=== PATIENT | female | born 2000 | race Hispanic/Latino ===

== ENCOUNTER 2020-09-15 11:49 | Day surgery (SDC) | payer OTHER ==
[2020-09-15 12:48] VITALS: BP 106/56; TEMP 98.4; BMI 33.2
[2020-09-15] MEDS ORDERED: hydrALAZINE 20 MG/ML VIAL SLOW IVP PRN (12:48)
--- NOTE | 2020-09-15 13:29 | PDOC.FPROB ---
FMR OB H&P: HPI - History of Present Illness Chief Complaint: non reactive NST History of Present Illness: Pt is a 20 yo @ 38.6 wks by 10.4wk sono was sent over from [facility] due to non-reactive NST. She has been getting routine NSTs in clinic due to decreased growth, which has resolved. Most recent US on 08/30/20 showed [place] of 58%. She states she has been able to feel movements. Denies contractions, LOF, vaginal bleeding/discharge/pain. Has scheduled eIOL on 09/20/20. Primary Care Physician: [facility]- Dr Bauer FMR OB H&P: Current - Care : 3 Para: 1011 Gestational age: 38.6 Due date: 09/23/20 Dating Criteria: 10.4wk sono Course/Complications: hx of BV in 1T, anemia - OB Labs Blood type: A RH: positive Antibody Screen: negative HIV: negative RPR: negative HepBsAg: negative Gonorrhea: negative Chlamydia: negative 1 hour gtt: 2hr GTT 76/83/111 GBS: negative - Additional Ultrasound Additional: 08/30 [place] 58% FMR OB H&P: History - Past Medical History PMH: childhood asthma, anemia - OB History OB History: , PPH requiring blood transfusion after term 3 years ago - Surgical History Sx History: umbilical hernia repair - Social History Social History: no T/A/D - Family History Family History: Grandfather- heart problems FMR OB H&P: Medications - Current Home Medications: Medication Instructions Recorded Confirmed Type Vit 10/Iron/Folic/Dha 1 each PO DAILY 08/26/16 09/15/20 History [Vitafol-OB+DHA Combo Pack] Allergies/Adverse Reactions: Allergies Allergy/AdvReac Type Severity Reaction Status Date / Time No Known Allergies Allergy Verified 09/15/20 12:41 FMR OB H&P: ROS - Review of Systems General: denies: fever/chills, weight/appetite/sleep changes Eyes: denies: vision changes ENT: denies: nasal congestion Cardiovascular: denies: chest pain, edema Respiratory: denies: cough, congestion, shortness of breath Gastrointestinal: denies: abdominal pain, nausea, vomiting Genitourinary (Female): denies: dysuria, vaginal bleeding, contractions Musculoskeletal: denies: pain Neurologic: denies: headache Integumentary: denies: rash Endocrine: denies: polyuria FMR OB H&P: Vital Signs - Maternal Vital signs: Vital Signs - First Documented Temp Pulse Resp BP 98.4 F 90 18 106/56 L 09/15/20 12:40 09/15/20 12:40 09/15/20 12:40 09/15/20 12:40 - Heart Tones Baseline: 135 Variability: moderate Acceleration: present Deceleration: absent Category: category 1 [place] contractions every: none FMR OB H&P: Physical Exam - Physical Exam General: NAD, awake, alert and oriented HEENT: normocephalic and atraumatic, no scleral icterus, grossly normal vision, grossly normal hearing Neck: supple, FROM Heart: RRR, normal S1/S2 General: CTAB, no wheezing Abdomen: soft, gravid, non-tender Musculoskeletal: pulses present, no atrophy Neurological: no focal deficit Skin: no rash, capillary refill <2 seconds, no jaundice Lymphatic: no unusual bruising or bleeding Psychiatric: intact recent and remote memory, good judgement and insight, normal mood and affect FMR OB H&P: A/P Discussion: Date/Time: 09/15/20 1326 #sIUP in 3T -non-reactive NST in clinic -VSS, asymptomatic, +FM -NST: reassuring and reactive -BPP: 05/07, LAURA 12, vertex, anterior placenta -continue routine outpatient f/u, eIOL scheduled for 09/20/20 #hx of PPH -aware #childhood asthma -aware This H&P was discussed with Dr. Benjamin and Dr. Gamez who agree with the above documentation and plan.
--- NOTE | 2020-09-15 14:31 | ULT ---
ULTRASOUND BIOPHYSICAL PROFILE: 09/15/20 HISTORY: distress. FINDINGS: A single live intrauterine gestation is seen with a heart rate of 135 beats per minute. Placent a is anterior without placenta previa. LAURA measures 12.1 cm. BIOPHYSICAL PROFILE: tone: 2 breathin movement: 2 Amniotic fluid: 2 IMPRESSION: Ultrasound biophysical profile score is 8 out of 8. POS: AH
[2020-09-16] MEDS ORDERED: FLU VACC QS2020-21(6MOS UP)/PF 60 MCG/0.5 ML SYRINGE IM ONE (13:00)
== END 2020-09-15 13:58 | disposition home or self-care (01) ==
LOC: L&D/OP 11:49
DX: Z01.89 Encounter for other specified special examinations (principal); O99.013 Anemia complicating pregnancy, third trimester; D64.9 Anemia, unspecified; O99.513 Diseases of the respiratory system complicating pregnancy, third trimester; J45.909 Unspecified asthma, uncomplicated; Z3A.38 38 weeks gestation of pregnancy
CPT/HCPCS: 59025; 76819; 99282

== ENCOUNTER 2020-09-16 09:49 | Outpatient (CLI) | payer OTHER ==
[2020-09-16 21:36] LABS: SARS-CoV-2 MS2 Positive; SARS-CoV-2 N Gene Negative; SARS-CoV-2 S Gene Negative; SARS-CoV-2 by NAA Not Detected (NotDetected); SARS-CoV-2 orf1ab Negative
== END 2020-09-16 09:50 | disposition home or self-care (01) ==
LOC: LABBT 09:49
PROVIDERS: ATTEND Emergency Medicine
DX: Z01.812 Encounter for preprocedural laboratory examination (principal); Z20.828 Contact with and (suspected) exposure to other viral communicable diseases
CPT/HCPCS: 87635; U0003

== ENCOUNTER 2020-09-20 19:30 | Inpatient (IN) | payer OTHER, SELFPAY ==
[~2020-09-20 19:30] MED LIST: Bupivacaine HCl 0.25%/Epi 0.0005/PF 10 ML VIAL FS ONE; Sodium Chloride 0.9% (PF) 10 ML VIAL ONE
[2020-09-20] MEDS ORDERED: Promethazine HCl 25 MG/ML VIAL IM PRN (20:13)
[2020-09-20] MEDS ORDERED: Ibuprofen 800 MG TAB PO PRN (20:13)
[2020-09-20] MEDS ORDERED: hydrALAZINE 20 MG/ML VIAL SLOW IVP PRN (20:13)
[2020-09-20] MEDS ORDERED: Butorphanol Tartrate 1 MG/ML VIAL SLOW IVP PRN (20:13)
[2020-09-20] MEDS ORDERED: Carboprost 250 MCG/ML AMP IM PRN (20:13)
[2020-09-20] MEDS ORDERED: Methylergonovine 0.2 MG/ML VIAL IM PRN (20:13)
[2020-09-20] MEDS ORDERED: Acetaminophen 500 MG TAB PO PRN (20:13)
[2020-09-20] MEDS ORDERED: Lidocaine 1% (PF) 30 ML VIAL SC PRN (20:13)
[2020-09-20] MEDS ORDERED: Ondansetron PF 4 MG/2 ML Vial IVP PRN (20:13)
[2020-09-20] MEDS ORDERED: Docusate 100 MG CAP PO PRN (20:13)
[2020-09-20] MEDS ORDERED: NS w/ Oxytocin 30 units 500 ML IV PRN (20:13)
[2020-09-20] MEDS ORDERED: Misoprostol 200 MCG TAB PR PRN (20:13)
--- NOTE | 2020-09-20 20:18 | PDOC.FPROB ---
FMR OB H&P: HPI - History of Present Illness Chief Complaint: eIOL History of Present Illness: Pt is a 20 yo at 39.4 wga by 10.4 wk sono consistent with LMP who presents for eIOL. Patient states she is feeling well. Endorses good movement. Denies ctx/LOF/VB/VD. Primary Care Physician: MIRIAM Bauer FMR OB H&P: Current - Care : 3 Para: 1011 Gestational age: 39.4 Due date: 09/23/2020 Dating Criteria: 10.4 wk sono - OB Labs Blood type: A RH: positive Antibody Screen: negative HIV: negative RPR: negative HepBsAg: negative Rubella: immune Gonorrhea: negative Chlamydia: negative FMR OB H&P: History - Past Medical History PMH: asthma (has not used inhaler since 10 yo), history of anemia - OB History OB History: SAB at 8 weeks with D&C in 2015 Previous delivery was a VAVD with a 2nd degree lac. She required a transfusion due to uterine atony causing PPH - [employer]IST History [employer]IST History: BV in LMP 12/18/2019 Menarche 7 - Surgical History Sx History: appendectomy - Social History Social History: denies - Family History Family History: denies FMR OB H&P: Medications - Current Home Medications: Medication Instructions Recorded Confirmed Type Vit 10/Iron/Folic/Dha 1 each PO DAILY 08/26/16 09/20/20 History [Vitafol-OB+DHA Combo Pack] Allergies/Adverse Reactions: Allergies Allergy/AdvReac Type Severity Reaction Status Date / Time No Known Allergies Allergy Verified 09/20/20 20:39 FMR OB H&P: ROS - Review of Systems General: denies: fever/chills, weight/appetite/sleep changes Eyes: denies: vision changes, double vision ENT: denies: nasal congestion Cardiovascular: denies: chest pain, palpitation, edema Respiratory: denies: cough, congestion, shortness of breath Gastrointestinal: denies: abdominal pain, nausea, vomiting, diarrhea Genitourinary (Female): denies: hematuria, vaginal discharge, vaginal pain, vaginal bleeding, contractions, vaginal pressure Neurologic: denies: numbness, syncope, headache Integumentary: denies: itching, rash FMR OB H&P: Vital Signs - Heart Tones Baseline: 140 Variability: moderate Acceleration: present Deceleration: absent Category: category 1 [place] contractions every: irritability FMR OB H&P: Physical Exam - Physical Exam General: NAD, awake, alert and oriented HEENT: normocephalic and atraumatic, PERRLA, EOMI, conjunctiva clear, grossly normal hearing Heart: RRR, normal S1/S2, no murmurs/rubs/gallops, pulses present, no edema General: CTAB, no respiratory distress, no wheezing Abdomen: soft, gravid, non-tender Neurological: cranial nerves II through XII intact, no clonus, no focal deficit Skin: good tugor, capillary refill <2 seconds Lymphatic: no unusual bruising or bleeding Psychiatric: intact recent and remote memory, good judgement and insight - Pelvic Exam Vulva: normal hair distribution, appropriate earl stage SVE: closed/thick/high Holt score: 2 Membranes: intact Presentation: cephalic FMR OB H&P: A/P Disposition: Pt is a 20 yo at 39.4 wga by 10.4 wk sono consistent with LMP who presents for eIOL. #eIOL -Holt score of 2 on admission with cervical check closed thick and high -will start with Cytotec and recheck in 3 hours -will start on Pitocin once cervix is favorable -continuous monitoring -will confirm presentation with bedside sono #history of PPH -aware -medications ordered and will be available at delivery Anticipate Discussion: Date/Time: 09/20/202017 This H&P was discussed with Dr. Mera and Dr. Jacob who agree with the above documentation and plan. Addendum - Attending - Attending Attestation Date/Time: 09/21/202007 I personally evaluated the patient and discussed the management with Dr. Alexander. I agree with the History, Examination, Assessment and Plan documented above with any addition or exceptions noted below.
[2020-09-20 20:55] VITALS: BMI 34.0
[2020-09-20] MEDS: Lactated Ringer's 1,000 ML IV SCH (20:58)
[2020-09-20 21:17] LABS: Hemoglobin 11.8 g/dL (12.0-16.0); Mean Corpuscular HGB CONC 33.2 g/dL (32.0-36.0); Mean Corpuscular Hemoglobin 27.6 pg (27.0-31.0); Mean Corpuscular Volume 83.1 fL (78.0-98.0); Mean Platelet Volume 10.4 fL (7.4-10.4); Platelet Count 156 thou/uL (130-400); RBC Distribution Width 15.2 % (11.5-14.5); Red Blood Cell (RBC) Count 4.28 mill/uL (4.20-5.40); White Blood Cell (WBC) Count 8.6 thou/uL (4.8-10.8)
[2020-09-20] MEDS: Misoprostol 100 MCG TAB VAG SCH (21:37)
[2020-09-20 21:56] LABS: Syphilis Antibody Nonreactive (Nonreactive); Syphilis Antibody Index 0.04 S/CO (<1.00 Non-Reactive)
--- NOTE | 2020-09-21 00:53 | PDOC.LDPN ---
Labor & Delivery Progress Note - Subjective Subjective: comfortable - Objective Vital signs reviewed and normal: yes General: NAD, resting Uterine fundus: non tender Dilation: 3 Effacement: 50% Station: -2 FHT: category 1, variability present [place] contractions every: q1-2 minutes Plan: continue plan of care -: Will check on patient in 1 hour as patient is matheus every 1-2 minutes, although she is not feeling them. Holt score of 6. Will start pit in 1 hour as long as contractions have spaced out. Anticipate Plan discussed with Dr Ghosh who agrees with above documentation and plan Addendum - Attending - Attending Attestation Date/Time: 09/21/20 8972 I personally evaluated the patient and discussed the management with Dr. Alexander. I agree with the History, Examination, Assessment and Plan documented above with any addition or exceptions noted below.
[2020-09-21] MEDS: Misoprostol 100 MCG TAB VAG SCH ×4 (02:01→23:34)
[2020-09-21 02:13] LABS: HBSAg Index 0.16 S/CO (0-0.99); Hep B Surf Ag Non-Reactive S/CO (NonReactive)
[2020-09-21] MEDS ORDERED: NS w/ Oxytocin 30 units 500 ML IVPB SCH ×2 (03:00)
--- NOTE | 2020-09-21 03:20 | PDOC.LDPN ---
Labor & Delivery Progress Note - Subjective Subjective: comfortable - Objective Vital signs reviewed and normal: yes General: NAD Dilation: 4 Effacement: 50% Station: -2 FHT: category 1, variability present [place] contractions every: variable 3-8 min Plan: continue plan of care, pitocin for augmentation -: Cat 1 strip Patient not feeling contractions Patient desires epidural Will start Pitocin and recheck in 2 hours Continuous monitoring Anticipate Plan discussed with Dr Ghosh who agrees with above documentation and plan
[2020-09-21] MEDS ORDERED: Fentanyl 100 MCG/2 ML VIAL ONE (03:44)
[2020-09-21] MEDS ORDERED: Lactated Ringer's 500 ML IV PRN (04:07)
[2020-09-21] MEDS ORDERED: Naloxone HCl 0.4 mg/ml Vial IVP PRN ×2 (04:07)
[2020-09-21] MEDS ORDERED: ePHEDrine 50 MG/ML VIAL SLOW IVP PRN (04:07)
[2020-09-21] MEDS ORDERED: Ondansetron PF 4 MG/2 ML Vial IVP PRN (04:07)
[2020-09-21] MEDS ORDERED: Promethazine HCl 25 MG/ML VIAL IM PRN (04:07)
[2020-09-21] MEDS ORDERED: diphenhydrAMINE 50 MG/ML VIAL IVP PRN (04:07)
[2020-09-21] MEDS ORDERED: Acetaminophen 325 MG TAB PO PRN (04:07)
[2020-09-21] MEDS ORDERED: Communication Order-Pharmacy FS SCH (04:15)
[2020-09-21] MEDS ORDERED: Fentanyl 4 mcg/Bupivacaine 0.1% Cassette 100 ML EPIDURAL SCH (04:15)
[2020-09-21] MEDS: Fentanyl 4 mcg/Bup 0.1% Cadd 100 ML in Premix Bag 1 BAG EPIDURAL SCH ×2 (04:24→11:43)
[2020-09-21] MEDS: Lactated Ringer's 1,000 ML IV SCH ×2 (05:09→11:48)
--- NOTE | 2020-09-21 07:42 | PDOC.LDPN ---
Labor & Delivery Progress Note - Subjective Subjective: comfortable - Objective Vital signs reviewed and normal: yes General: NAD Uterine fundus: non tender Dilation: 5 Effacement: 50% Station: -1 FHT: category 1, variability present [place] contractions every: 2 minutes AROM: bloody fluid (minimal fluid) Plan: continue plan of care, pitocin for augmentation -: AROM performed with minimal fluid and blood noted Cat 1 strip with contractions q 2 minutes Patient has epidural and is comfortable Continue Pit Making adequate change Recheck cervix in 3 hours Anticipate Plan discussed with Dr Ghosh who agrees with above documentation and plan
--- NOTE | 2020-09-21 09:55 | PDOC.LDPN ---
Labor & Delivery Progress Note - Subjective Subjective: comfortable - Objective Vital signs reviewed and normal: yes General: NAD SVE: /-2 FHT: category 1, variability present [place] contractions every: 5min -: Pt is a 20 yo at 39.4 wga by 10.4 wk sono consistent with LMP who presents for eIOL. #eIOL - AROM @ 0615 - SVE @ 0830 /-2, on pit @ 8 - FHT: Cat 1, baseline 130/mod [place]/+accel - continuous monitoring and routine SVE - has epidural, pain controlled #history of PPH -aware -medications ordered and will be available at delivery
--- NOTE | 2020-09-21 11:09 | PDOC.LDPN ---
Labor & Delivery Progress Note - Subjective Subjective: comfortable, no concerns - Objective Vital signs reviewed and normal: yes General: NAD, resting, breathing through contractions Uterine fundus: non tender SVE: /-2 by Meghan Dilation: 6 Effacement: 90% Station: -2 FHT: category 1, variability present [place] contractions every: 3 min AROM: clear fluid (using amnio-hook) Plan: continue plan of care, pitocin for augmentation -: Pt is a 20 yo at 39.4 wga by 10.4 wk sono consistent with LMP who presents for eIOL. #eIOL - AROM @ 0615, AROM attempted again at 1100 check with return of large amount clear fluid - SVE @ 0830 //-2, on pit @ 8 -SVE @ 1100 6//-2, on pit @ 6 - FHT: Cat 1, baseline 140/mod [place]/+accel - continuous monitoring and routine SVE - has epidural, pain controlled #history of PPH -aware -medications ordered and will be available at delivery Dispo: Stable, admitted to inpatient on L&D in labor. Next check in 2 hours, sooner if indicated.
[2020-09-21] MEDS ORDERED: Tranexamic Acid 1,000 MG/10 ML VIAL ONE (13:05)
--- NOTE | 2020-09-21 14:01 | PDOC.LDPN ---
Labor & Delivery Progress Note - Subjective Subjective: comfortable, no concerns - Objective Vital signs reviewed and normal: yes General: NAD, resting, breathing through contractions Uterine fundus: non tender SVE: 7/100/0 by Reyna MCGRATH Dilation: 7 Effacement: 100% Station: 0 FHT: category 1 (baseline 130), variability present [place] contractions every: 2-3 min AROM: clear fluid (performed at 1100 check) Resuscitative measures: maternal position change Plan: continue plan of care, pitocin for augmentation (currently at 12) -: Pt is a 20 yo at 39.4 wga by 10.4 wk sono consistent with LMP who presents for eIOL. #eIOL - AROM @ 0615, AROM attempted again at 1100 check with return of large amount clear fluid - SVE @ 0830 5/90/-2, on pit @ 8 -SVE @ 1100 6/90/-2, on pit @ 6 -SVE @ 1300 7/100/0, on pit @ 12 - FHT: Cat 1, baseline 130/mod [place]/+accel - continuous monitoring and routine SVE - has epidural, pain controlled #history of PPH -aware -medications ordered and will be available at delivery Dispo: Stable, admitted to inpatient on L&D in labor. Next check in 2 hours, sooner if indicated.
--- NOTE | 2020-09-21 16:11 | PDOC.OPDEL ---
OB Operative/Delivery Note Delivery Dr/Surgeon: Dr. Bauer, with Dr. Leon attending Assist: Dr. Woodruff, Pre-Delivery Diagnosis: active labor Procedure/Post Delivery Dx: spontaneous vaginal delivery Weeks gestation: 39 (39.5) Anesthesia: epidural - Additional Findings/Plan Placenta delivered: spontaneous (shultzz) Repaired Obstetrical Laceration: none Estimated blood loss: 110 Compilations/Other Findings: Procedure: Spontaneous Vaginal Delivery Anesthesia: epidural QBL: 110 ml Pre-op Diagnosis: 1. Term intrauterine in labor 2. Hx of PPH with VAVD of previous delivery 3. Mild Shoulder dystocia relieved with Karen and steady downward pressure Post-op Diagnosis: 1. Term intrauterine , delivered 2. same as above Indications: A 20 y/o female -> 2013 presents in induction of labor. Delivery Note: This is 20 yo F -> 2013 @ 39.5 wks who delivered a viable M infant at 15:33 on 09/21/20. Following an uneventful antepartum course, a vigorous male was delivered over an intact perineum in the occipitoanterior position. The head was very tightly engaged toward the perineum. Head restituted, Karen Position was achieved with the nurse, and steady downward pressure delivered the Anterior Shoulder and then remainder of the body easily. No nuchal cord. The head was held down and mouth and nares were bulb suctioned. Cord clamped after delayed cord clamping and cut and cord blood collected. Placenta delivered intact in the [place] with a 3 vessel cord noted. Bimanual massage was performed and the fundus was firm, but the lower uterine segment had atony. 800 Mg cytotec was placed rectally. The cervix and vagina were inspected and found to be free of lacerations. There was a small abrasion on the posterior vaginal introitus, which was hemostatic, and did not require any closure. Infant went to nursery in good condition for routine care. Apgars were 8/9 at 1 & 5 minutes, respectively. Patient tolerated delivery well and went to after routine recovery/care. Addendum - Attending - Attending Attestation Date/Time: 09/21/20 1652 I was present, supervised, and assisted with the of a viable male infant over an intact perineum to this 20 yo @39.5 weeks. Apgars 8/9. Placenta delivered spontaneously and intact. 3V cord. No epis or lac. QBL= 110 mL. Infant and mother in stable condition.
[2020-09-21] MEDS ORDERED: Preparation H Ointment 28 GM TUBE PR PRN (16:44)
[2020-09-21] MEDS ORDERED: hydrALAZINE 20 MG/ML VIAL SLOW IVP PRN (16:44)
[2020-09-21] MEDS ORDERED: Adacel (T-DAP) 0.5 ML SYRINGE IM ONE (16:44)
[2020-09-21] MEDS ORDERED: Benzocaine-Menthol 82.5 ML CAN TOP PRN (16:44)
[2020-09-21] MEDS ORDERED: Bisacodyl 10 MG SUPP PR PRN (16:44)
[2020-09-21] MEDS ORDERED: NS / Oxytocin 40 units/1000ml 1,000 ML IV SCH (16:44)
[2020-09-21] MEDS ORDERED: Lanolin Ointment 7 GM TUBE TOP PRN (16:44)
[2020-09-21] MEDS ORDERED: Milk Of Magnesia 30 ML UDCUP PO PRN (16:44)
[2020-09-21] MEDS: Prenatal Vitamin 1 TAB PO SCH (23:34)
[2020-09-21] MEDS: Ferrous Sulfate 325 MG TAB PO SCH (23:35)
[2020-09-21] MEDS: Docusate Calcium (SURFAK) 240 MG CAP PO SCH (23:35)
[2020-09-22] MEDS: Ibuprofen 800 MG TAB PO SCH ×3 (01:12→14:27)
[2020-09-22] MEDS: Misoprostol 100 MCG TAB VAG SCH ×3 (01:13→07:29)
--- NOTE | 2020-09-22 06:18 | PDOC.PP ---
Post Progress Note Post Day #: 1 Subjective: Used translation line for interpretation Pt tolerated very well -minimal lochia -wants to go home -formula feeding -says she has minimal abd pain PO intake tolerated: yes Flatus: yes Ambulation: yes Vital Signs (12 hours) Temp Pulse Resp BP 09/21/20 22:15 97.9 F 58 L 16 107/60 09/21/20 20:13 98.3 F 73 18 112/62 Weight Weight 76.657 kg - Physical Examination General: NAD Cardiovascular: no m/r/g, RRR Respiratory: clear to auscultation bilaterally, non-labored breathing Abdominal: + bowel sounds, lochia, no distention, appropriately TTP Neurological: no gross focal deficits Psychiatric: A&Ox3, normal affect Result Diagrams: 09/22/20 06:07 Additional Labs: Post Labs Hep Bs Antigen Non-Reactive S/CO (NonReactive) 09/20/20 21:01 Blood Type A POSITIVE 09/20/20 21:30 - Assessment/Plan 20 y/o -> 3 delivered via , PP day #1 -pain well controlled, continue tyelnol and motrin when discharged -light lochia, H/H stable and no need for iron supplement -f/u in 2 weeks @ [facility] -does not desire circ for baby boy -nursery noted she declined Hep B vaccine, will go and discuss with her before discharge -would like depo provera for contraception Discussed care plan with Dr. Leon. Addendum - Attending - Attending Attestation Date/Time: 09/22/20 1981 I personally evaluated the patient and discussed the management with Dr. Paulson I agree with the History, Examination, Assessment and Plan documented above with any addition or exceptions noted below - Patient without complaints. Afebrile VSS. A/P: 1) PPD#1 s/p - cmontinue routine NB care. Possible d/c home later today..
[2020-09-22 06:37] LABS: Hemoglobin 11.8 g/dL (12.0-16.0); Mean Corpuscular HGB CONC 33.5 g/dL (32.0-36.0); Mean Corpuscular Hemoglobin 28.3 pg (27.0-31.0); Mean Corpuscular Volume 84.6 fL (78.0-98.0); Mean Platelet Volume 9.7 fL (7.4-10.4); Platelet Count 137 thou/uL (130-400); RBC Distribution Width 15.3 % (11.5-14.5); Red Blood Cell (RBC) Count 4.18 mill/uL (4.20-5.40); White Blood Cell (WBC) Count 12.4 thou/uL (4.8-10.8)
[2020-09-22] MEDS: Ferrous Sulfate 325 MG TAB PO SCH (07:29)
[2020-09-22] MEDS: Prenatal Vitamin 1 TAB PO SCH (09:43)
[2020-09-22] MEDS: Docusate Calcium (SURFAK) 240 MG CAP PO SCH (09:43)
[2020-09-22 17:01] VITALS: BP 101/62; TEMP 98.2
--- NOTE | 2020-09-27 00:46 | PQF ---
CLINICAL DOCUMENTATION CLARIFICATION FORM: Dear : Jamee Leon Date / Time: 09/26/2020 Please exercise your independent, professional judgment in responding to the clarification form. Clinical indicators are provided on the bottom of this form for your review Please check appropriate box(es): [ ] Uterine atony with hemorrhage [ ] Uterine atony without hemorrhage [ ] Other diagnosis [ ] Unable to determine In addition, please specify: Present on Admission (POA): [ ] Yes [ ] No [ ] Unable to determine To be completed by CDI/Coding staff for physician review: Present Clinical Indicators - Signs / Symptoms / Labs Results and Location in Medical Record [ x ] Lower uterine segment had atony, 800 mg cytotec was placed rectally Labor and delivery 09/21 [ x ] Hemoglobin was 11.8 (L). Hematocrit was 35.4 (L) Laboratory Present Risk Factors Results and Location in Medical Record [ x ] History of PPH, QBL: 110 mL Labor and delivery 09/21 Present Treatments Results and Location in Medical Record [ x ] Cytotec 800 mg Labor and delivery 09/21 CDS/Blade Filer Signature: [id number] Phone #: Date/Time: 09/26/2020 This is a permanent part of the Medical Record [facility]
== END 2020-09-22 19:00 | disposition home or self-care (01) | DRG 807 ==
LOC: L&D 19:37 → 3SW 09-21 22:13
PROVIDERS: ADMIT Emergency Medicine; ATTEND Emergency Medicine
PROC: 10E0XZZ Delivery of Products of Conception, External Approach (ICD-10-PCS; principal; 2020-09-21)
PROC: 10907ZC Drainage of Amniotic Fluid, Therapeutic from Products of Conception, Via Natural or Artificial Opening (ICD-10-PCS; 2020-09-21)
DX: O66.0 Obstructed labor due to shoulder dystocia (principal); Z37.0 Single live birth; Z3A.39 39 weeks gestation of pregnancy; O62.2 Other uterine inertia
CPT/HCPCS: 36415; 51702; 85027; 86780; 86850; 86900; 86901; 87340; J2590

== ENCOUNTER 2024-04-03 14:43 | Emergency (ER) | payer SELFPAY ==
[2024-04-03] MEDS ORDERED: Ibuprofen 200 MG TAB ONE (17:38)
== END 2024-04-03 18:45 | disposition home or self-care (01) ==
LOC: ERS 14:43
DX: S09.90XA Unspecified injury of head, initial encounter (principal); M54.2 Cervicalgia; R40.2412 Glasgow coma scale score 13-15, at arrival to emergency department; J45.909 Unspecified asthma, uncomplicated; Z79.899 Other long term (current) drug therapy; V49.40XA Driver injured in collision with unspecified motor vehicles in traffic accident, initial encounter
CPT/HCPCS: 70450; 72125